=== PATIENT | female | born 1980 | race Caucasian/White ===

== ENCOUNTER 2023-01-22 17:21 | Emergency (ER) | payer OTHER, SELFPAY ==
[2023-01-22 17:26] VITALS: BP 128/80; PULSE 100; RESP 18; TEMP 37.2; O2SAT 100
--- NOTE | 2023-01-22 17:38 | ED.URI ---
HPI - URI/Sore Throat General Chief Complaint: Upper Respiratory Infection Stated Complaint: fatigue/cough/fever Time Seen by Provider: 01/22/23 17:46 Source: patient and RN notes reviewed Mode of arrival: ambulatory Limitations: no limitations History of Present Illness HPI Narrative: 42-year-old female presents concern for 2 day history of general malaise, fever, chills, sweats, fatigue, cough. She reports she was exposed to COVID 4 days ago. She denies taking any [id number] medications for her symptoms. MD elicited complaint: fever and cough Related Data Allergies Allergy/AdvReac Type Severity Reaction Status Date / Time wheat Allergy Mild NAUSEA, Unverified 07/24/15 18:12 BLOATING No Known Drug Allergies Allergy Unknown Verified 07/24/15 18:12 Review of Systems Review of Systems: CONSTITUTIONAL: Reports malaise, chills, sweats, or fever. EYES: Denies visual changes, redness, or discharge. ENT: Reports rhinorrhea, congestion. Denies sinus pain, otalgia and sore throat. CARDIOVASCULAR: Denies chest pain, palpitations, or edema. RESPIRATORY: Reports cough, chest congestion. Denies dyspnea. GASTROINTESTINAL: Denies abdominal pain, nausea, vomiting, diarrhea SKIN: Denies rash or itching. MUSCULOSKELETAL: Reports myalgia. NEUROLOGIC: Reports headache. All systems reviewed & are unremarkable except as noted in HPI and below PMFSH Comments At time of signature, agree with nursing past medical, surgical, social and family history. There is no relevant family history pertinent to the presenting complaint Exam Narrative: GENERAL: Nontoxic-appearing, well-nourished, and in no acute distress. HEAD: Normocephalic EYES: PERRLA, conjunctivae clear ENT: Nares clear, turbinates edematous and erythematous, clear discharge. Mucous membranes moist. TM pearly solano with dull light reflex bilaterally; no tragal tenderness. Oropharynx not erythematous without lesions. Tonsils not enlarged and without exudate, no drooling, no hoarseness, no trismus, uvula midline. NECK: Supple. No lymphadenopathy CHEST: Scattered wheeze, otherwise clear to auscultation, breath sounds equal. No rhonchi, rales, or stridor. No respiratory distress, speaks in full sentences. HEART: Regular rate and rhythm. No murmur heard. SKIN: Warm, dry, no rash. NEURO: Alert and oriented x3. PSYCH: Normal mood and affect Course Course Emergency Course: Patient is aware of diagnosis, understands and agrees to treatment plan. Anticipatory guidance given. Patient agrees to follow-up as directed and is aware of reasons to seek care at the emergency department. Portions of this record may have been created with voice recognition software Level of Care: Express Care Visit Vital Signs Vital signs: Vital Signs Temperature 99 F 01/22/23 17:26 Pulse Rate 100 01/22/23 17:26 Respiratory Rate 18 01/22/23 17:26 Blood Pressure 128/80 01/22/23 17:26 Pulse Oximetry 100 01/22/23 17:26 Oxygen Delivery Room Air 01/22/23 17:26 Temperature 99 F 01/22/23 17:26 Pulse Rate 100 01/22/23 17:26 Respiratory Rate 18 01/22/23 17:26 Blood Pressure 128/80 01/22/23 17:26 Pulse Oximetry 100 01/22/23 17:26 Oxygen Delivery Room Air 01/22/23 17:26 Reviewed. MDM - URI/Sore Throat MDM Narrative Medical decision making narrative: Differential diagnosis considered: Hilliard virus, strep pharyngitis, allergic rhinitis, upper respiratory tract infection, sinusitis, rhinosinusitis, nasopharyngitis. viral pharyngitis, otitis media, otitis externa, pneumonia, bronchitis, viral cough syndrome, viral syndrome, and influenza. Exam findings show no acute concerns or changes; patient is non-toxic appearing and is in no distress. Patient is appropriate for outpatient treatment and follow-up. Lab Data Attestation: I reviewed the patient's lab results. Critical Care Time Critical Care Time Critical Care Time: No Discharge Plan Discharge Clin
== END 2023-01-22 18:23 | disposition home or self-care (01) ==
PROVIDERS: Emergency Provider Nurse Practitioner
DX: B34.9 Viral infection, unspecified (principal); R06.2 Wheezing; Z20.822 Contact with and (suspected) exposure to COVID-19
CPT/HCPCS: 87426; 87804; 99203; C9803; G0463

== ENCOUNTER 2024-02-24 18:57 | Emergency (ER) | payer OTHER, SELFPAY ==
[2024-02-24 19:00] VITALS: BP 129/85; PULSE 106; RESP 20; TEMP 37.1; O2SAT 100
--- NOTE | 2024-02-24 19:40 | ED.DENTAL ---
HPI - Dental/Oral General Chief complaint: Dental/Oral Stated complaint: Swollen face Time Seen by Provider: 02/24/24 19:40 Source: patient, RN notes reviewed and old records reviewed Mode of arrival: ambulatory Limitations: no limitations History of Present Illness HPI Narrative: 43 year old female who presents to [facility] care with complaints of dental pain to the left upper mouth which started this morning. Patient has multiple caries an missing and broken teeth in mouth with pain to area of broken teeth #10 and 11 with gum swelling and redness swollen. Patient has noted facial swelling to the left side of her face. Patient reports no difficulty with her breathing or with swallowing. Patient reports that she has been taking Tylenol and has used ice to her face.Patient reports that she has no dentist. MD Complaint: tooth pain Location: Tooth # (10, &11) Onset (ago): day(s) (1) Severity scale (1-10): 9 Treatment prior to arrival: other (ice compresses and also Tylenol) Related Data Allergies Allergy/AdvReac Type Severity Reaction Status Date / Time wheat Allergy Mild NAUSEA, Unverified 07/24/15 18:12 BLOATING No Known Drug Allergies Allergy Unknown Unknown Verified 02/24/24 19:05 Review of Systems Review of Systems: CONSTITUTIONAL: Denies fever, chills, or sweats. ENT: Denies rhinorrhea, congestion, sore throat, or otalgia. Reports dental pain #10 and #11 tooth area which are broken off with swelling to the left side of her face CARDIOVASCULAR: Denies chest pain, palpitations, or edema. RESPIRATORY: Denies cough or dyspnea. SKIN: Denies rash or itching. MUSCULOSKELETAL: Denies myalgia. NEUROLOGIC: Denies headache All systems reviewed & are unremarkable except as noted in HPI and below REPLACED BY [facility] Past Medical History Medical History (Updated 02/26/24 @ 13:49 by Deandra Rios NP) History of dental problems DVT (deep venous thrombosis) Surgical History Surgical History (Updated 02/26/24 @ 13:52 by Deandra iRos NP) H/O: hemorrhoidectomy History of tubal ligation Social History Social History (Updated 02/26/24 @ 13:49 by Deandra Rios NP) Smoking status: Current every day smoker Tobacco type: cigarettes Gender identity (if verbalized by the patient): Female Comments At time of signature, agree with nursing past medical, surgical, social and family history. There is no relevant family history pertinent to the presenting complaint Exam Narrative: GENERAL: Well-appearing, well-nourished, and in some acute distress related to dental pain and swelling of face. HEAD: Normocephalic, atraumatic. EYES: PERRLA and EOMI. ENT: Nares clear, no rhinorrhea or epistaxis. Mucous membranes moist. Missing teeth, broken teeth, caries, swelling and redness of gum at site of broken off teeth #10 and #11 with left sided facial swelling, no trismus or Lloyd angina noted denies any respiratory difficulty or trouble with swallowing NECK: Supple. no lymphadenopathy, CHEST: Clear to auscultation. No respiratory distress. no tachypnea SAO2 100% on room air HEART: Regular rate and rhythm. No murmur heard. Normal peripheral pulses. SKIN: Warm, dry, no rash. NEURO: No focal deficits. Alert and oriented x3. Course Course Emergency Course: Patient is aware of diagnosis, understands and agrees to treatment plan. Anticipatory guidance given. Patient agrees to follow-up as directed and is aware of reasons to seek care at the emergency department. Portions of this record may have been created with voice recognition software Level of Care: Express Care Visit Vital Signs Vital signs: Vital Signs Temperature 37.1 C 02/24/24 19:00 Pulse Rate 106 H 02/24/24 19:00 Respiratory Rate 20 02/24/24 19:00 Blood Pressure 129/85 02/24/24 19:00 Pulse Oximetry 100 02/24/24 19:00 Oxygen Delivery Room Air 02/24/24 19:00 Temperature 37.1 C 02/24/24 19:00 Pulse Rate 106 H 02/24/24 19:00 Respiratory Rate 20 02/24/24 19:00 Blood Pressure 129/85 02/24/24 19:00 Pulse Oximetry 100 02/24/24 19:00 Oxygen Delivery Room Air 02/24/24 19:00 reviewed MDM - Dental/Oral MDM Narrative Medical decision making narrative: Patients pain and complaint coupled with physical findings are consistent with dentalgia. There are no focal signs of space occupying lesions that are compromising to the airway; no dysphagia, odynophagia, dysphonia, or dyspnea. No uvular deviation or soft palate edema. Patient is non-toxic appearing. The floor of the mouth is soft with no signs of Lloyd's Angina; no induration below mandible, no neck pain.? Patient is without trismus or drooling and able to swallow secretions.? Patient is felt appropriate for discharge home with dental follow up. Differential Diagnosis Differential diagnosis: Likely dental caries, toothache, dental abscess and other (facial pain and swelling) Medical Records Attestation: I reviewed the patient's medical records. Critical Care Time Critical Care Time Critical Care Time: No Discharge Plan Discharge Clinical Impression: Dental abscess, Facial swelling Patient Disposition: Home, Self-Care Condition: Stable Instructions: Antibiotic Form, Dental Abscess (ED) Additional Instructions: Avoid temperature extremes May apply heat or ice to the face Gentle brushing and flossing Antibiotic as directed Tylenol for lesser pain Use ibuprofen regularly Rotate Tylenol and ibuprofen every 4 hours Follow-up with the dentist as soon as possible--see the list provided [facility] in the morning at 8:00 a.m. to see if can get on the list for emergency care If your symptoms persist, change or worsen significantly before you can contact your personal physician then please, without delay, go to the emergency department for further evaluation. Follow-up with PCP in 7-10 days or sooner if needed Follow up with PCP soon in regards to your blood pressure which is elevated above threshold for referral. Blood pressure above 120/80 may indicate pre-hypertension. 129/85 Patient Language: Spanish Prescriptions: New penicillin V potassium 500 mg tablet 500 mg PO Q12H 10 Days Qty: 20 0RF ibuprofen 600 mg tablet 600 mg PO QID PRN (Reason: fever or pain) Qty: 30 0RF Follow-up/Referrals: PHYSICIAN,[employer] [Primary Care Provider] - Stand Alone Forms: Work/School Release IP Time of Disposition: 19:48 Quality Lee Coma Scale Eyes: Open Verbal: Oriented and Alert Motor: Follows Commands Lee Coma Total Score: 15
== END 2024-02-24 19:50 | disposition home or self-care (01) ==
PROVIDERS: Emergency Provider Registered Nurse
DX: K04.7 Periapical abscess without sinus (principal); R22.0 Localized swelling, mass and lump, head; F17.210 Nicotine dependence, cigarettes, uncomplicated; Z86.718 Personal history of other venous thrombosis and embolism
CPT/HCPCS: 99213; G0463